=== PATIENT | female | born 1950 | race Hispanic/Latino ===

== ENCOUNTER 2016-12-14 16:09 | Emergency (ER) | payer MEDICARE ==
[2016-12-14] MEDS ORDERED: NARCAN 0.4 MG/1 ML ONE (16:34)
[2016-12-14] MEDS ORDERED: NARCAN 0.4 MG/1 ML IV ONE (16:42)
[2016-12-14 17:40] LABS: INR 1.05 (0.87-1.13)
[2016-12-14 17:41] LABS: Partial Thromboplastin Time 24.5 Sec. (24.2-36.6)
[2016-12-14 17:42] LABS: White Blood Count TNR K/mm3 (4.5-11.0)
[2016-12-14 17:43] LABS: Basophils % (Auto) TNR % (0.0-1.8); Eosinophils % (Auto) TNR % (0.0-4.3); Hematocrit TNR % (30.3-42.9); Hemoglobin TNR gm/dl (10.1-14.3); Mean Corpuscular HGB Conc TNR % (30-34); Mean Corpuscular Hemoglobin TNR pg (28-32); Mean Corpuscular Volume TNR fl (79-97); Mean Platelet Volume TNR fl (6-12); Platelet Count TNR K/mm3 (140-440); Red Blood Count TNR M/mm3 (3.65-5.03); Red Cell Distribution Width TNR % (13.2-15.2)
[2016-12-14 17:44] LABS: Diff Status TNR
[2016-12-14 17:47] LABS: Anion Gap 16 mmol/L; BUN/Creatinine Ratio 18.88; Blood Urea Nitrogen 17 mg/dL (7-17); Calcium 8.4 mg/dL (8.4-10.2); Carbon Dioxide 24 mmol/L (22-30); Chloride 103.7 mmol/L (98-107); Glucose 110 mg/dL (65-100); Potassium 3.4 mmol/L (3.6-5.0); Sodium 140 mmol/L (137-145)
[2016-12-14 17:51] LABS: Alanine Aminotransferase 15 units/L (7-56); Albumin 3.5 g/dL (3.9-5); Albumin/Globulin Ratio 1.3 %; Alkaline Phosphatase 61 units/L (35-129); Bilirubin,Total 0.2 mg/dL (0.1-1.2); Creatine Kinase 58 units/L (30-135); Magnesium 1.9 mg/dL (1.7-2.3); Total Protein 6.3 g/dL (6.3-8.2)
[2016-12-14 17:53] LABS: Bilirubin,Direct < 0.2 mg/dL (0-0.2)
--- NOTE | 2016-12-14 18:56 | Emergency Department Report ---
ED General Adult HPI - General Chief complaint: Weakness Stated complaint: NAUSEA Time Seen by Provider: 12/14/16 16:38 Source: patient, EMS Mode of arrival: Stretcher Limitations: No Limitations - History of Present Illness Initial comments: Patient states that she took 2 Percocets at home and then began to feel strange. She had nausea and vomiting. The patient's per EMS reported that she passed out. However she was awake and lethargic on EMS arrival. The patient was not diaphoretic on arrival in the emergency department. She was the lift driver. She was given 0.4 of Narcan on arrival. Eventually she became much more awake. 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 However she states that they were unable to perform it because there was too much scar tissue I suspect that her cervical os. She was discharged in stable condition. She went home and did not have any significant bleeding. She took 2 oxycodone a medication which she has never taken before. The patient states that she felt fine before the procedure and just had minor pain thereafter. She had no other prodromal symptoms. She's had no recent fever or chills. She denies any chest pain breathing difficulty or abdominal pain. She did have some vomiting and route to the hospital. -: Gradual Severity scale (0 -10): 0 Consistency: now resolved (now improving) Improves with: none Worsens with: none Associated Symptoms: denies other symptoms - Related Data Allergies Allergy/AdvReac Type Severity Reaction Status Date / Time No Known Allergies Allergy Unverified 12/14/16 16:35 ED Review of Systems ROS: Stated complaint: NAUSEA Other details as noted in HPI Constitutional: denies: chills, fever Eyes: denies: eye pain, eye discharge, vision change ENT: denies: ear pain, throat pain Respiratory: denies: cough, shortness of breath, wheezing Cardiovascular: denies: chest pain, palpitations Endocrine: no symptoms reported Gastrointestinal: nausea, vomiting. denies: abdominal pain, diarrhea Genitourinary: denies: urgency, dysuria, discharge Musculoskeletal: denies: back pain, joint swelling, arthralgia Skin: denies: rash, lesions Neurological: denies: headache, weakness, paresthesias Psychiatric: denies: anxiety, depression Hematological/Lymphatic: denies: easy bleeding, easy bruising ED Past Medical Hx - Past Medical History Previous Medical History?: No - Surgical History Past Surgical History?: No - Social History Smoking Status: Never Smoker Substance Use Type: None ED Physical Exam - General Limitations: No Limitations General appearance: alert, in no apparent distress - Head Head exam: Present: atraumatic, normocephalic - Eye Eye exam: Present: normal appearance, PERRL, EOMI. Absent: scleral icterus - ENT ENT exam: Present: normal exam, mucous membranes moist - Neck Neck exam: Present: normal inspection - Respiratory Respiratory exam: Present: normal lung sounds bilaterally. Absent: respiratory distress - Cardiovascular Cardiovascular Exam: Present: normal rhythm, bradycardia. Absent: systolic murmur, diastolic murmur, rubs, gallop - GI/Abdominal GI/Abdominal exam: Present: soft, normal bowel sounds. Absent: distended, tenderness, guarding, rebound, rigid - Extremities Exam Extremities exam: Present: normal inspection - Back Exam Back exam: Present: normal inspection. Absent: CVA tenderness (R), CVA tenderness (L) - Neurological Exam Neurological exam: Present: alert, oriented X3, CN II-XII intact. Absent: motor sensory deficit - Psychiatric Psychiatric exam: Present: normal affect, normal mood - Skin Skin exam: Present: warm, dry, intact, normal color. Absent: rash ED Course Vital Signs 12/14/16 12/14/16 12/14/16 16:16 16:22 16:42 Temperature Pulse Rate 44 L Respiratory 14 9 L Rate Blood Pressure 107/51 O2 Sat by Pulse 94 89 98 Oximetry 12/14/16 12/14/16 12/14/16 17:00 18:00 19:36 Temperature Pulse Rate 47 L 48 L 49 L Respiratory 11 L 7 L 15 Rate Blood Pressure 106/58 111/42 106/43 O2 Sat by Pulse 100 100 97 Oximetry 12/14/16 19:44 Temperature 97.5 F L Pulse Rate Respiratory Rate Blood Pressure O2 Sat by Pulse Oximetry - Reevaluation(s) Reevaluation #1: Patient's level of consciousness improved to normal. Her arrived.. Reevaluating this patient had never taken narcotic medication before. He was confident that was the cause of the patient's problems. It does appear that most likely her symptoms were an adverse effects of oxycodone. He tells me that often when she checks her blood pressure at home she has a slow heart rate but "she has never been asked that by before. 12/14/16 19:37 Reevaluation #2: Rate is in the high 50s. Blood pressure is normotensive. The patient is clinically improved and will discharged after review of her CBC results. 12/14/16 19:38 ED Medical Decision Making - Lab Data Result diagrams: 12/14/16 19:15 12/14/16 16:59 Laboratory Results - last 24 hr 12/14/16 12/14/16 12/14/16 16:59 16:59 16:59 WBC TNR RBC TNR Hgb TNR Hct TNR MCV TNR MCH TNR MCHC TNR RDW TNR Plt Count TNR Lymph % (Auto) TNR [place] % (Auto) TNR Eos % (Auto) TNR Baso % (Auto) TNR Lymph # TNR [place] # TNR Eos # TNR Baso # TNR Add Manual Diff TNR Seg Neutrophils % TNR Seg Neutrophils # TNR PT 13.6 INR 1.05 APTT 24.5 Sodium 140 Potassium 3.4 L Chloride 103.7 Carbon Dioxide 24 Anion Gap 16 BUN 17 Creatinine 0.9 Estimated GFR > 60 BUN/Creatinine Ratio 18.88 Glucose 110 H Lactic Acid Calcium 8.4 Magnesium Total Bilirubin Direct Bilirubin Indirect Bilirubin AST ALT Alkaline Phosphatase Ammonia Total Creatine Kinase CK-MB (CK-2) CK-MB (CK-2) Rel Index Troponin T < 0.010 NT-Pro-B Natriuret Pep Total Protein Albumin Albumin/Globulin Ratio TSH Free T4 Acetaminophen 12/14/16 12/14/16 12/14/16 16:59 16:59 16:59 WBC RBC Hgb Hct MCV MCH MCHC RDW Plt Count Lymph % (Auto) [place] % (Auto) Eos % (Auto) Baso % (Auto) Lymph # [place] # Eos # Baso # Add Manual Diff Seg Neutrophils % Seg Neutrophils # PT INR APTT Sodium Potassium Chloride Carbon Dioxide Anion Gap BUN Creatinine Estimated GFR BUN/Creatinine Ratio Glucose Lactic Acid 1.3 Calcium Magnesium 1.9 Total Bilirubin 0.2 Direct Bilirubin < 0.2 Indirect Bilirubin 0.0 AST 22 ALT 15 Alkaline Phosphatase 61 Ammonia 28.0 Total Creatine Kinase 58 CK-MB (CK-2) 2.0 CK-MB (CK-2) Rel Index 3.4 Troponin T < 0.010 NT-Pro-B Natriuret Pep 202.6 Total Protein 6.3 Albumin 3.5 L Albumin/Globulin Ratio 1.3 TSH Free T4 Acetaminophen 12/14/16 12/14/16 16:59 16:59 WBC RBC Hgb Hct MCV MCH MCHC RDW Plt Count Lymph % (Auto) [place] % (Auto) Eos % (Auto) Baso % (Auto) Lymph # [place] # Eos # Baso # Add Manual Diff Seg Neutrophils % Seg Neutrophils # PT INR APTT Sodium Potassium Chloride Carbon Dioxide Anion Gap BUN Creatinine Estimated GFR BUN/Creatinine Ratio Glucose Lactic Acid Calcium Magnesium Total Bilirubin Direct Bilirubin Indirect Bilirubin AST ALT Alkaline Phosphatase Ammonia Total Creatine Kinase CK-MB (CK-2) CK-MB (CK-2) Rel Index Troponin T NT-Pro-B Natriuret Pep Total Protein Albumin Albumin/Globulin Ratio TSH 1.150 Free T4 1.06 Acetaminophen < 15.0 - EKG Data -: EKG Interpreted by [place] EKG shows normal: sinus rhythm Rate: bradycardia - EKG Data Interpretation: no acute changes, other (low-voltage EKG) Critical care attestation.: If time is entered above; I have spent that time in minutes in the direct care of this critically ill patient, excluding procedure time. ED Disposition Clinical Impression: Adverse effects of medication, Bradycardia, Hypokalemia Disposition: DISCHARGED TO HOME OR SELFCARE Is pt being admited?: No Does the pt Need Aspirin: No Condition: Stable Instructions: Narcotic Pain Management (ED), Bradycardia (ED), Hypokalemia (ED) Additional Instructions: I would try to avoid I see code own in the future. Return any further problem. Follow-up with your primary care physician. Referrals: PRIMARY CARE, [Primary Care Provider] - 2-3 Days Time of Disposition: 19:57
[2016-12-14] MEDS ORDERED: K-DUR PO ONE (19:39)
[2016-12-14 19:44] LABS: Basophils % (Auto) 0.5 % (0.0-1.8); Eosinophils % (Auto) 0.8 % (0.0-4.3); Hematocrit 38.5 % (30.3-42.9); Hemoglobin 12.8 gm/dl (10.1-14.3); Mean Corpuscular HGB Conc 33 % (30-34); Mean Corpuscular Hemoglobin 32 pg (28-32); Mean Corpuscular Volume 96 fl (79-97); Platelet Count 230 K/mm3 (140-440); Red Blood Count 4.03 M/mm3 (3.65-5.03); Red Cell Distribution Width 13.9 % (13.2-15.2); White Blood Count 9.2 K/mm3 (4.5-11.0)
[2016-12-14 20:31] VITALS: BP 142/68
--- NOTE | 2016-12-15 07:26 | XRay Report ---
AP CHEST: HISTORY: Altered mental status AP view of the chest demonstrates a normal mediastinal and cardiac contour with clear lungs and normal bony and soft tissue structures. IMPRESSION: No acute cardiopulmonary process.
== END 2016-12-14 20:39 | disposition home or self-care (01) ==
LOC: ED 16:09
DX: T50.905A Adverse effect of unspecified drugs, medicaments and biological substances, initial encounter (principal); Y92.9 Unspecified place or not applicable; R00.1 Bradycardia, unspecified; E87.6 Hypokalemia
CPT/HCPCS: 36415; 71010; 80048; 80074; 82140; 82550; 82553; 82962; 83735; 83880; 84439; 84443; 84484; 85025; 85610; 85730; 93005; 93010; 96374; 99285; G0480; J2310; 80320

== ENCOUNTER 2021-03-16 16:09 | Outpatient (CLI) | payer MEDICARE ==
--- NOTE | 2021-03-29 14:46 | Mammography Report ---
DIGITAL SCREENING MAMMOGRAM WITH CAD, 03/16/2021 CLINICAL INFORMATION / INDICATION: Routine screening mammography. SCREENING MAMMO TECHNIQUE: Digital bilateral 2D mammography was obtained in the craniocaudal and mediolateral obliqu e projections. This examination was interpreted with the benefit of Computer-Aided Detection analysis . COMPARISON: January 09, 2018, January 03, 2018, December 21, 2016 and December 16, 2015 FINDINGS: Breast Density: There are scattered areas of fibroglandular density. No dominant mass, suspicious calcifications, or architectural distortion in either breast. There are benign breast calcifications within each breast, which do not appear significant change fro m comparison. Unchanged round mass within the left upper-outer breast. IMPRESSION: No mammographic evidence of malignancy. Follow up recommendation: Routine yearly BI-RADS Category 2: Benign. A "normal" or negative report should not discourage follow up or biopsy of a clinically significant f inding. A written summary of these findings will be mailed to the patient. The patient will be entered into a mammography reporting system which will generate a reminder letter for the patient's next appointmen t at the appropriate interval. The [employer] recommends yearly mammograms starting at age 40 and continuing as l calvin as a woman is in good health. Breast MRI is recommended for women with an approximate 20-25% or greater lifetime risk of breast cancer, including women with a strong family history of breast or ova gregg cancer or who have been treated for Hodgkin's disease. Signer Name: Mikey Rider DO Signed: 03/29/2021 2:42 PM Workstation Name: [id number]
== END 2021-03-16 16:10 | disposition home or self-care (01) ==
LOC: SPVWC 16:09
PROVIDERS: ATTEND Internal Medicine
DX: Z12.31 Encounter for screening mammogram for malignant neoplasm of breast (principal)
CPT/HCPCS: 77067

== ENCOUNTER 2022-03-22 14:06 | Outpatient (CLI) | payer MEDICARE ==
--- NOTE | 2022-03-23 16:33 | Mammography Report ---
DIGITAL SCREENING MAMMOGRAM WITH CAD, 03/22/2022 CLINICAL INFORMATION / INDICATION: Routine screening mammography. TECHNIQUE: Digital bilateral 2D mammography was obtained in the craniocaudal and mediolateral obliqu e projections. This examination was interpreted with the benefit of Computer-Aided Detection analysis . COMPARISON: 02/14/2019, 03/16/2021 FINDINGS: Breast Density: The breasts are heterogeneously dense, which may obscure small masses. No dominant mass, suspicious calcifications, or architectural distortion in either breast. There are few benign bilateral calcifications. Overall, no interval change. IMPRESSION: No mammographic evidence of malignancy. Follow up recommendation: Routine yearly screening mammogram. BI-RADS Category 2: BENIGN. A "normal" or negative report should not discourage follow up or biopsy of a clinically significant f inding. A written summary of these findings will be mailed to the patient. The patient will be entered into a mammography reporting system which will generate a reminder letter for the patient's next appointmen t at the appropriate interval. The [employer] recommends yearly mammograms starting at age 40 and continuing as l calvin as a woman is in good health. Breast MRI is recommended for women with an approximate 20-25% or greater lifetime risk of breast cancer, including women with a strong family history of breast or ova gregg cancer or who have been treated for Hodgkin's disease. Signer Name: Fabby Chandler MD Signed: 03/23/2022 4:29 PM Workstation Name: [id number]
== END 2022-03-22 14:07 | disposition home or self-care (01) ==
LOC: SPVWC 14:06
PROVIDERS: ATTEND Internal Medicine
DX: Z12.31 Encounter for screening mammogram for malignant neoplasm of breast (principal)
CPT/HCPCS: 77067